=== PATIENT | male | born 1995 | race Hispanic/Latino ===

== ENCOUNTER 2017-09-04 23:02 | Emergency (ER) | payer BC, OTHER ==
[~2017-09-04] VITALS: Ht 175.3 cm; Wt 54.4 kg
[~2017-09-04 23:02] MED LIST: BUDESONIDE0.5 MG/2 M INH; XOPENEX HFA15 GM INH
[2017-09-04] MEDS ORDERED: PREDNISONE 20 MG TAB PO ONE (23:45)
[2017-09-04] MEDS ORDERED: ALBUTEROL/IPRATROPIUM 3 ML NEB NEB ONE (23:45)
[2017-09-04] MEDS ORDERED: AZITHROMYCIN 250 MG TAB PO ONE (23:45)
[2017-09-05 00:38] VITALS: BP 115/52
== END 2017-09-05 00:40 | disposition home or self-care (01) ==
LOC: FSED 23:02
DX: R06.00 Dyspnea, unspecified (principal); J45.31 Mild persistent asthma with (acute) exacerbation
CPT/HCPCS: 71046; 99283

== ENCOUNTER 2021-12-22 11:20 | Emergency (ER) | payer BC, OTHER ==
[~2021-12-22] VITALS: Ht 175.3 cm; Wt 69.4 kg
[2021-12-22] MEDS ORDERED: IBUPROFEN 600 MG TAB PO STA (11:57)
[2021-12-22 13:58] VITALS: BP 121/68
== END 2021-12-22 15:07 | disposition home or self-care (01) ==
LOC: ER 11:24
DX: S80.12XA Contusion of left lower leg, initial encounter (principal); S80.11XA Contusion of right lower leg, initial encounter; W20.8XXA Other cause of strike by thrown, projected or falling object, initial encounter; Y92.89 Other specified places as the place of occurrence of the external cause; J45.909 Unspecified asthma, uncomplicated; F17.210 Nicotine dependence, cigarettes, uncomplicated
CPT/HCPCS: 99283

== ENCOUNTER 2023-12-26 10:48 | Emergency (ER) | payer BC ==
[~2023-12-26] VITALS: Ht 175.3 cm; Wt 70.8 kg
[2023-12-26 10:59] VITALS: PULSE 69; RESP 18; TEMP 98.3
[2023-12-26] MEDS: KETOROLAC TROMETHAMINE 60 MG/2 ML VIAL IM ONE (12:37)
[2023-12-26 12:52] VITALS: BP 111/75; PULSE 70; RESP 17; O2SAT 100
== END 2023-12-26 12:57 | disposition home or self-care (01) ==
LOC: ER 10:56
DX: S76.011A Strain of muscle, fascia and tendon of right hip, initial encounter (principal); M25.561 Pain in right knee; X50.1XXA Overexertion from prolonged static or awkward postures, initial encounter; Y92.89 Other specified places as the place of occurrence of the external cause; J45.909 Unspecified asthma, uncomplicated
CPT/HCPCS: 73502; 73562; 99283; J1885

== ENCOUNTER 2025-03-05 10:41 | Emergency (ER) | payer BC ==
[~2025-03-05] VITALS: Ht 175.3 cm; Wt 68.0 kg
[2025-03-05 10:56] VITALS: RESP 18; TEMP 98.6
[2025-03-05] MEDS: TRAMADOL HCL 50 MG TAB PO ONE (11:57)
[2025-03-05] MEDS: KETOROLAC TROMETHAMINE 30 MG/ML VIAL IM STA (11:57)
[2025-03-05 13:20] VITALS: PULSE 60; O2SAT 100
[2025-03-05] MEDS ORDERED: NAPROXEN375 MG PO (13:21)
== END 2025-03-05 13:38 | disposition home or self-care (01) ==
LOC: ER 10:46
DX: M25.521 Pain in right elbow (principal); R20.0 Anesthesia of skin; W18.39XA Other fall on same level, initial encounter; Y92.89 Other specified places as the place of occurrence of the external cause; J45.909 Unspecified asthma, uncomplicated
CPT/HCPCS: 73030; 73080; 73110; 99283; J1885